=== PATIENT | female | born 1955 | race Caucasian/White ===

== ENCOUNTER → 2017-04-21 | Outpatient (CLI) | payer OTHER ==
--- NOTE | 2017-04-21 09:19 | RAD ---
Indication: Recheck elbow fracture. Time of exam 0854 hours. No prior studies are available for comparison. 3 views of the right elbow were obtained. Alignment is normal. There appears to be a fracture of the neck of the proximal radius. No displacement is seen. No other fractures are identified. There is mild prominence of the anterior fat pad. Impression: Probable fracture of the radial neck, nondisplaced. Continued follow-up is recommended.
== END | disposition home or self-care (01) ==
LOC: DXRAD 08:38
PROVIDERS: ATTEND Orthopaedic Surgery
DX: S52.131D Displaced fracture of neck of right radius, subsequent encounter for closed fracture with routine healing (principal); X58.XXXD Exposure to other specified factors, subsequent encounter
CPT/HCPCS: 73080